=== PATIENT | female | born 1960 | race African-American/Black ===

== ENCOUNTER 2018-01-18 08:49 | Emergency (ER) | payer MEDICAID, OTHER ==
[~2018-01-18] VITALS: Ht 157.5 cm; Wt 75.0 kg
[2018-01-18] MEDS ORDERED: ATOR40TA70 PO (08:57)
[2018-01-18] MEDS ORDERED: METF500T6 PO (08:57)
[2018-01-18] MEDS ORDERED: OMEP20TA15 PO (08:57)
[2018-01-18] MEDS ORDERED: tylenol #3 (08:57)
[2018-01-18] MEDS ORDERED: HYDR12.529 PO (08:57)
[2018-01-18] MEDS ORDERED: IBUP-2029 PO (08:57)
[2018-01-18] MEDS ORDERED: LOSA100T14 PO (08:57)
[2018-01-18] MEDS ORDERED: AMLO10TA80 PO (08:57)
[2018-01-18] MEDS ORDERED: SODIUM CHLORIDE 0.9% 1,000 ML IV ONE (10:28)
[2018-01-18] MEDS ORDERED: KETOROLAC 30MG/ML VIAL IV STA (10:28)
[2018-01-18 10:32] LABS: CLARITY URINE CLEAR (CLEAR); COLOR URINE YELLOW (YELLOW); KETONES URINE NEGATIVE (NEGATIVE); LEUKOCYTE ESTERASE URINE 1+ (NEGATIVE); NITRITE URINE NEGATIVE (NEGATIVE); OCCULT BLOOD URINE TRACE (NEGATIVE); PH URINE 5.5 (4.5-8.0); PROTEIN URINE 1+ (NEGATIVE); SPECIFIC GRAVITY URINE 1.011 (1.005-1.030)
[2018-01-18 11:23] LABS: BASOPHILS % 0.9 % (0.0-2.0); HEMATOCRIT. 40.9 % (36.0-48.0); HEMOGLOBIN. 13.8 g/dL (12.0-16.0); LYMPHOCYTES % 31.8 % (20.0-50.0); MEAN CORPUSCULAR HEMOGLOBIN 29.8 pg (28.0-32.0); MEAN CORPUSCULAR VOLUME 88.6 fL (81.0-99.0); MEAN PLATELET VOLUME 9.4 fl (7.4-10.4); MONOCYTES % 6.7 % (2.0-8.0); NEUTROPHILS % 59.6 % (40.0-76.0); PLATELET 258 x1000/uL (130-400); RED BLOOD CELL COUNT 4.61 mill/uL (4.2-5.4); RED CELL DISTRIBUTION WIDTH 13.3 % (11.6-14.6)
[2018-01-18 11:28] LABS: CHLORIDE 103 mEq/L (98-107)
[2018-01-18 12:57] VITALS: BP 165/82
== END 2018-01-18 12:59 | disposition home or self-care (01) ==
LOC: ER 08:49
DX: N30.00 Acute cystitis without hematuria (principal); R10.33 Periumbilical pain; E78.00 Pure hypercholesterolemia, unspecified; I10 Essential (primary) hypertension; E11.9 Type 2 diabetes mellitus without complications; F17.200 Nicotine dependence, unspecified, uncomplicated; Z79.84 Long term (current) use of oral hypoglycemic drugs; Z90.49 Acquired absence of other specified parts of digestive tract; Z90.81 Acquired absence of spleen; Z88.0 Allergy status to penicillin
CPT/HCPCS: 36415; 74176; 80053; 81003; 83690; 85025; 96374; 99285; J1885; J7030; Z7610